=== PATIENT | female | born 1985 | race Two or more races ===

== ENCOUNTER 2019-04-28 17:55 | Inpatient (IN) | payer SELFPAY ==
[~2019-04-28] VITALS: Ht 160 cm; Wt 95.5 kg
[2019-04-28 19:02] LABS: Basophils # (auto) 0 uL; Basophils % (auto) 0.2 % (0.0-2.0); Eosinophils # (auto) 0 uL; Eosinophils % (auto) 0.1 % (0.0-7.0); Hematocrit 40.8 % (36.0-46.0); Hemoglobin 13.4 g/dL (12.2-16.2); Lymphocytes # (auto) 1.2 uL; Lymphocytes % (auto) 7.3 % (10.0-50.0); Mean Corpuscular Hemoglobin 29.5 pg (28.0-32.0); Mean Corpuscular Volume 89.4 fL (80.0-100.0); Monocytes # (auto) 1.6 uL; Monocytes % (auto) 9.6 % (0.0-12.0); Neutrophils # (auto) 13.8 uL; Neutrophils % (auto) 82.8 % (37.0-80.0); Nucleated Red Blood Cells % 0.1 %; Platelet Count (auto) 299 10^3/uL (140-450); Red Blood Cells 4.56 10^6/uL (4.0-5.20); White Blood Cell 16.7 10^3/uL (4.4-10.8)
[2019-04-28 19:25] LABS: Alanine Aminotransferase 322 U/L (13-56); Albumin 3.7 g/dL (3.4-5.0); Anion Gap 14 (5-15); Blood Alcohol < 3.0 mg/dL (0-5); Blood Urea Nitrogen 25 mg/dL (7-18); Calcium 6.7 mg/dL (8.5-10.1); Carbon Dioxide 16 mmol/L (21-32); Chloride 102 mmol/L (98-107); GFR African American 19 mL/min; GFR Non-African American 15 mL/min; Glucose 135 mg/dL (74-106); Sodium 132 mmol/L (136-145)
[2019-04-28 19:34] LABS: Alkaline Phosphatase 80 U/L (45-117); Aspartate Aminotransferase 1299 U/L (15-37); Bilirubin, Total 0.5 mg/dL (0.2-1.0); Total Protein 8.1 g/dL (6.4-8.2)
[2019-04-28 19:50] LABS: Potassium 6.6 mmol/L (3.5-5.1)
[2019-04-28 21:19] LABS: Urine Bacteria NONE SEEN /hpf (None Seen); Urine Blood 3+ /uL (Negative); Urine Hyaline Cast FEW /lpf (0 - 2); Urine Mucus FEW (None Seen); Urine Specific Gravity 1.017 (1.001-1.035); Urine WBC 5 /hpf (0 - 5)
[2019-04-28 21:26] LABS: Alcohol, Urine < 3.0 mg/dL (0-5); Amphetamine Screen, Urine POSITIVE (NEGATIVE); Barbiturate Scree,Urine NEGATIVE (NEGATIVE); Benzodiazephine Screen, Urine NEGATIVE (NEGATIVE); Cannabinoid Screen, Urine NEGATIVE (NEGATIVE); Cocaine Screen, Urine NEGATIVE (NEGATIVE); Opiate Scree,Urine NEGATIVE (NEGATIVE); Phencyclidine Screen, Urine NEGATIVE (NEGATIVE)
[2019-04-28] MEDS ORDERED: SODIUM CHLORIDE 0.9% 1,000 ML IV ONE ×2 (23:15)
[2019-04-28] MEDS ORDERED: DEXTROSE (50%) 50ML SYRG IV ONE (23:30)
[2019-04-28] MEDS ORDERED: InsuLIN REG 1unit/0.01ml Soln (100units/ml) IV ONE (23:30)
[2019-04-28] MEDS ORDERED: FUROSEMIDE 40 MG/4 ML VIAL IV ONE (23:30)
[2019-04-28] MEDS ORDERED: SODIUM BICARBONATE 8.4% INJ 50ML SYRINGE IV ONE (23:30)
[2019-04-29] MEDS ORDERED: ONDANSETRON HCL 4 MG/2 ML VIAL IV ONE (01:15)
[2019-04-29] MEDS ORDERED: CALCIUM GLUC 4.65meq/50ml D5AE 50 ML IV ONE (03:00)
[2019-04-29] MEDS ORDERED: SODIUM ZIRCONIUM CYCL 10 GM PAK PO ONE (03:00)
[2019-04-29] MEDS ORDERED: ATORVASTATIN 20 MG TAB PO ONE (03:00)
[2019-04-29] MEDS ORDERED: NITROGLYCERIN 0.4 MG SL TAB SL PRN (03:00)
[2019-04-29] MEDS ORDERED: ENOXAPARIN SOD 80 MG/0.8ML SYRINGE SC ONE (03:00)
[2019-04-29] MEDS ORDERED: SODIUM CHLORIDE 0.9% 500 ML IV ONE (03:00)
[2019-04-29] MEDS ORDERED: SODIUM CHLORIDE 0.9% 1,000 ML IV SCH (03:00)
[2019-04-29] MEDS ORDERED: MORPHINE SULF INJ 2 MG/ML SYRINGE 1ML IV PRN (03:00)
[2019-04-29] MEDS ORDERED: SODIUM ZIRCONIUM CYCL 10 GM PAK ONE (03:26)
[2019-04-29 04:02] LABS: INR 1.16 (0.9-1.15); Partial Thromboplastin Time 28.2 sec (23.64-32.05)
[2019-04-29 08:59] LABS: Albumin 2.8 g/dL (3.4-5.0); Potassium 4.9 mmol/L (3.5-5.1)
[2019-04-29] MEDS: cefTRIAXone 1GM/50ML D5W 50 ML IV SCH (09:04)
[2019-04-29 09:10] LABS: BUN/Creatinine Ratio 9.1
[2019-04-29 09:11] LABS: Bilirubin, Total 0.6 mg/dL (0.2-1.0); Total Protein 6.5 g/dL (6.4-8.2)
[2019-04-29 09:12] LABS: Calcium 5.6 mg/dL (8.5-10.1)
[2019-04-29] MEDS ORDERED: ENOXAPARIN SOD 100 MG/1 ML SYRINGE SC SCH (10:00)
[2019-04-29] MEDS ORDERED: ENOXAPARIN SOD 80 MG/0.8ML SYRINGE SC SCH (10:00)
[2019-04-29] MEDS ORDERED: ASPirin 81 mg TAB PO SCH (10:00)
[2019-04-29] MEDS ORDERED: SODIUM BICARBONATE 50ML VIAL 50 ML in D5W/SOD CHL 0.45% 1,000 ML IV SCH (11:00)
[2019-04-29] MEDS: PANTOPRAZOLE 40 MG/10 ML VIAL INJ IV SCH (12:00)
[2019-04-29] MEDS: METOPROLOL TARTRATE 25 MG TAB PO SCH ×2 (12:44→21:46)
[2019-04-29] MEDS ORDERED: SODIUM CHLORIDE 0.9% 2,000 ML IV ONE (14:45)
[2019-04-29] MEDS ORDERED: FUROSEMIDE 40 MG/4 ML VIAL IV ONE (14:45)
[2019-04-29] MEDS: SODIUM BICARBONATE 50ML VIAL 75 ML in D5W/SOD CHL 0.45% 1,000 ML IV SCH ×2 (14:45→21:49)
[2019-04-29] MEDS: LORazepam 2MG/ML-1ML VIAL IV PRN ×2 (16:02→16:30)
[2019-04-29 18:15] VITALS: BP 101/85
[2019-04-29] MEDS: SEVELAMER 800 MG TAB PO SCH (18:45)
[2019-04-29 19:56] VITALS: BP 131/86
[2019-04-29 21:15] VITALS: BP 100/67
[2019-04-29] MEDS ORDERED: NICOTINE 7MG/24HR TOPICAL PATCH TD ONE (21:45)
[2019-04-29] MEDS ORDERED: TEMAZEPAM 15 MG CAP ONE (21:54)
[2019-04-29] MEDS ORDERED: ATORVASTATIN 20 MG TAB PO SCH ×2 (22:00)
[2019-04-30] VITALS (7 sets, daily range): BP systolic 121–154; BP diastolic 84–107
[2019-04-30] MEDS: SODIUM BICARBONATE 50ML VIAL 75 ML in D5W/SOD CHL 0.45% 1,000 ML IV SCH (05:27)
[2019-04-30 07:59] LABS: Basophils # (auto) 0 uL; Basophils % (auto) 0.2 % (0.0-2.0); Eosinophils # (auto) 0 uL; Hematocrit 36.7 % (36.0-46.0); Hemoglobin 11.6 g/dL (12.2-16.2); Lymphocytes # (auto) 1.7 uL; Lymphocytes % (auto) 11.7 % (10.0-50.0); Mean Corpuscular Hemoglobin 29.2 pg (28.0-32.0); Mean Corpuscular Hgb Conc. 31.6 g/dL (32.0-36.0); Mean Corpuscular Volume 92.3 fL (80.0-100.0); Monocytes # (auto) 0.6 uL; Monocytes % (auto) 4.2 % (0.0-12.0); Neutrophils # (auto) 12.3 uL; Neutrophils % (auto) 83.9 % (37.0-80.0); Nucleated Red Blood Cells % 0.1 %; Platelet Count (auto) 129 10^3/uL (140-450); Red Blood Cells 3.98 10^6/uL (4.0-5.20); Red Cell Distribution Width 14.5 % (11.8-14.3); White Blood Cell 14.7 10^3/uL (4.4-10.8)
[2019-04-30] MEDS: SEVELAMER 800 MG TAB PO SCH ×3 (08:05→17:48)
[2019-04-30 08:14] LABS: Albumin 2.6 g/dL (3.4-5.0); Potassium 5.2 mmol/L (3.5-5.1)
[2019-04-30 08:22] LABS: BUN/Creatinine Ratio 10.1; Bilirubin, Total 0.4 mg/dL (0.2-1.0); Total Protein 6.2 g/dL (6.4-8.2)
[2019-04-30 08:54] LABS: Calcium 5.4 mg/dL (8.5-10.1)
[2019-04-30] MEDS: LORazepam 2MG/ML-1ML VIAL IV PRN ×3 (09:07→19:40)
[2019-04-30] MEDS: cefTRIAXone 1GM/50ML D5W 50 ML IV SCH (09:07)
[2019-04-30] MEDS ORDERED: SODIUM CHLORIDE 0.9% 1,000 ML IV ONE (09:30)
[2019-04-30] MEDS: PANTOPRAZOLE 40 MG/10 ML VIAL INJ IV SCH (09:49)
[2019-04-30] MEDS: ASPirin 81 mg TAB PO SCH (09:49)
[2019-04-30] MEDS: METOPROLOL TARTRATE 25 MG TAB PO SCH ×2 (09:50→22:15)
[2019-04-30] MEDS ORDERED: FUROSEMIDE 100 MG/10ML VIAL IV ONE (11:45)
[2019-04-30] MEDS ORDERED: FUROSEMIDE 20 MG/2 ML VIAL IV ONE (12:00)
[2019-04-30 13:19] LABS: Albumin 2.4 g/dL (3.4-5.0); Uric Acid 12.9 mg/dL (2.6-6.0)
[2019-04-30 13:24] LABS: Calcium 5.2 mg/dL (8.5-10.1)
[2019-04-30] MEDS ORDERED: CALCIUM GLUC 4.65meq/50ml D5AE 50 ML IV ONE (13:30)
[2019-04-30] MEDS: SODIUM BICARBONATE 50ML VIAL 150 ML in D5W 5% 1,000 ML IV SCH ×2 (14:03→17:48)
[2019-04-30] MEDS: SODIUM CHLORIDE 0.9% 1,000 ML IV SCH (20:30)
[2019-04-30] MEDS: NICOTINE 7MG/24HR TOPICAL PATCH TD SCH (22:20)
[2019-04-30] MEDS ORDERED: IPRATROPIUM BROM 0.5 MG/2.5ML INH SOL ONE (22:43)
[2019-04-30] MEDS ORDERED: ALBUTEROL SULF 2.5 MG/0.5ML(0.5%) NEB SOLN ONE (22:43)
[2019-05-01] VITALS: BP_SYST 128; BP_SYST 144; BP_DIAS 89; BP_DIAS 90
[2019-05-01] MEDS: SODIUM BICARBONATE 50ML VIAL 150 ML in D5W 5% 1,000 ML IV SCH ×4 (01:04→20:14)
[2019-05-01] MEDS: LORazepam 2MG/ML-1ML VIAL IV PRN ×3 (01:20→20:12)
[2019-05-01] MEDS: ONDANSETRON HCL 4 MG/2 ML VIAL IV PRN (01:21)
[2019-05-01 03:39] VITALS: BP 128/89
[2019-05-01] MEDS: ALBUTEROL SULF 2.5 MG/0.5ML(0.5%) NEB SOLN NEB PRN ×2 (04:43→19:32)
[2019-05-01] MEDS: IPRATROPIUM BROM 0.5 MG/2.5ML INH SOL NEB PRN ×2 (04:43→19:32)
[2019-05-01 06:46] LABS: Basophils # (auto) 0 uL; Basophils % (auto) 0.3 % (0.0-2.0); Eosinophils # (auto) 0 uL; Eosinophils % (auto) 0.1 % (0.0-7.0); Hematocrit 30.1 % (36.0-46.0); Hemoglobin 10.3 g/dL (12.2-16.2); Lymphocytes # (auto) 1.4 uL; Mean Corpuscular Hemoglobin 29.7 pg (28.0-32.0); Mean Corpuscular Hgb Conc. 34.3 g/dL (32.0-36.0); Mean Corpuscular Volume 86.8 fL (80.0-100.0); Monocytes # (auto) 0.5 uL; Neutrophils # (auto) 9.9 uL; Neutrophils % (auto) 83.6 % (37.0-80.0); Platelet Count (auto) 134 10^3/uL (140-450); Red Blood Cells 3.47 10^6/uL (4.0-5.20); Red Cell Distribution Width 13.8 % (11.8-14.3); White Blood Cell 11.9 10^3/uL (4.4-10.8)
[2019-05-01 07:07] LABS: Albumin 2.4 g/dL (3.4-5.0); Potassium 4.1 mmol/L (3.5-5.1)
[2019-05-01 07:28] LABS: BUN/Creatinine Ratio 9.7; Bilirubin, Total 0.5 mg/dL (0.2-1.0); Total Protein 5.6 g/dL (6.4-8.2)
[2019-05-01 07:40] VITALS: BP 120/88
[2019-05-01 07:47] LABS: Calcium 5.3 mg/dL (8.5-10.1)
[2019-05-01] MEDS: SEVELAMER 800 MG TAB PO SCH ×3 (08:09→18:00)
[2019-05-01] MEDS: cefTRIAXone 1GM/50ML D5W 50 ML IV SCH (08:10)
[2019-05-01] MEDS ORDERED: CALCIUM CHL 100MG/ML 1,000 MG in D5W 5% 100 ML IV ONE (09:15)
[2019-05-01] MEDS: ASPirin 81 mg TAB PO SCH (09:43)
[2019-05-01] MEDS: PANTOPRAZOLE 40 MG/10 ML VIAL INJ IV SCH (09:43)
[2019-05-01] MEDS: METOPROLOL TARTRATE 25 MG TAB PO SCH ×2 (09:46→20:13)
[2019-05-01] MEDS: SODIUM CHLORIDE 0.9% 1,000 ML IV SCH ×4 (11:32→22:20)
[2019-05-01 11:45] VITALS: BP 131/92
[2019-05-01 15:45] VITALS: BP 143/83
[2019-05-01 20:00] VITALS: BP 142/105
[2019-05-01] MEDS: ATROPINE SULFATE 1% 2ml RIGHTEYE SCH (20:13)
[2019-05-01] MEDS: NICOTINE 7MG/24HR TOPICAL PATCH TD SCH (21:20)
[2019-05-01] MEDS ORDERED: LORazepam 2MG/ML-1ML VIAL IV PRN (22:15)
[2019-05-01] MEDS ORDERED: LORazepam 2MG/ML-1ML VIAL IV ONE (22:15)
[2019-05-02] VITALS: BP 123/88
[2019-05-02 04:06] VITALS: BP 144/100
[2019-05-02 07:45] VITALS: BP 111/76
[2019-05-02 08:06] LABS: Basophils # (auto) 0 10 ^3/uL (0-0.2); Basophils % (auto) 0.2 % (0.0-2.0); Eosinophils # (auto) 0.1 10 ^3/uL (0-0.8); Eosinophils % (auto) 0.6 % (0.0-7.0); Hematocrit 33.5 % (36.0-46.0); Hemoglobin 11.6 g/dL (12.2-16.2); Lymphocytes # (auto) 1.1 10 ^3/uL (0.4-5.4); Lymphocytes % (auto) 9.9 % (10.0-50.0); Mean Corpuscular Hemoglobin 30.3 pg (28.0-32.0); Mean Corpuscular Hgb Conc. 34.6 g/dL (32.0-36.0); Mean Corpuscular Volume 87.7 fL (80.0-100.0); Monocytes # (auto) 0.4 10 ^3/uL (0-1.3); Monocytes % (auto) 3.8 % (0.0-12.0); Neutrophils # (auto) 9.4 10 ^3/uL (1.6-8.6); Neutrophils % (auto) 85.5 % (37.0-80.0); Platelet Count (auto) 180 10^3/uL (140-450); Red Blood Cells 3.82 10^6/uL (4.0-5.20); Red Cell Distribution Width 13.8 % (11.8-14.3)
[2019-05-02 08:25] LABS: Albumin 1.9 g/dL (3.4-5.0); Potassium 3.9 mmol/L (3.5-5.1)
[2019-05-02 08:34] LABS: BUN/Creatinine Ratio 9.1; Bilirubin, Total 0.3 mg/dL (0.2-1.0); Total Protein 4.9 g/dL (6.4-8.2)
[2019-05-02 08:39] LABS: Calcium 5.3 mg/dL (8.5-10.1)
[2019-05-02] MEDS: ADENOSINE 90 MG in GIVE UN-DILUTED 0 ML IV STA (08:42)
[2019-05-02] MEDS: SODIUM BICARBONATE 50ML VIAL 150 ML in D5W 5% 1,000 ML IV SCH (09:55)
[2019-05-02] MEDS: SODIUM CHLORIDE 0.9% 1,000 ML IV SCH ×3 (09:55→19:10)
[2019-05-02 10:13] LABS: Hepatitis B Surface Antibody Positive
[2019-05-02] MEDS: ASPirin 81 mg TAB PO SCH (10:27)
[2019-05-02] MEDS: cefTRIAXone 1GM/50ML D5W 50 ML IV SCH (10:27)
[2019-05-02] MEDS: SEVELAMER 800 MG TAB PO SCH ×3 (10:27→17:05)
[2019-05-02] MEDS: PANTOPRAZOLE 40 MG/10 ML VIAL INJ IV SCH (10:28)
[2019-05-02] MEDS: ATROPINE SULFATE 1% 2ml RIGHTEYE SCH ×2 (10:28→22:09)
[2019-05-02] MEDS: METOPROLOL TARTRATE 25 MG TAB PO SCH ×2 (10:28→22:08)
[2019-05-02 10:51] LABS: Hepatitis A Total Antibody Positive
[2019-05-02 11:11] LABS: Hepatitis A Ab IgM Negative; Hepatitis B Core IgM Negative; Hepatitis B Core Total AB Negative; Hepatitis B Surface Antigen Negative (Negative)
[2019-05-02 11:12] LABS: Hepatitis C Antibody Negative (Negative)
[2019-05-02 11:40] VITALS: BP 120/89
[2019-05-02 14:15] LABS: Protein, Urine 174.7 mg/dL (0.0-11.9)
[2019-05-02 15:35] VITALS: BP 132/87
[2019-05-02 20:00] VITALS: BP 114/68
[2019-05-02] MEDS: NICOTINE 7MG/24HR TOPICAL PATCH TD SCH (22:09)
[2019-05-03] VITALS (9 sets, daily range): BP systolic 102–133; BP diastolic 69–81
[2019-05-03] MEDS: TEMAZEPAM 15 MG CAP PO PRN (00:07)
[2019-05-03] MEDS: SODIUM CHLORIDE 0.9% 1,000 ML IV SCH ×3 (01:50→16:44)
[2019-05-03] MEDS: SEVELAMER 800 MG TAB PO SCH ×3 (08:00→19:09)
[2019-05-03 08:07] LABS: Basophils # (auto) 0 10 ^3/uL (0-0.2); Basophils % (auto) 0.2 % (0.0-2.0); Eosinophils # (auto) 0.2 10 ^3/uL (0-0.8); Eosinophils % (auto) 1.3 % (0.0-7.0); Hemoglobin 12.8 g/dL (12.2-16.2); Lymphocytes # (auto) 1.3 10 ^3/uL (0.4-5.4); Lymphocytes % (auto) 9.1 % (10.0-50.0); Mean Corpuscular Hemoglobin 28.8 pg (28.0-32.0); Mean Corpuscular Hgb Conc. 32.7 g/dL (32.0-36.0); Mean Corpuscular Volume 88.1 fL (80.0-100.0); Monocytes # (auto) 0.4 10 ^3/uL (0-1.3); Monocytes % (auto) 2.8 % (0.0-12.0); Neutrophils # (auto) 11.9 10 ^3/uL (1.6-8.6); Neutrophils % (auto) 86.6 % (37.0-80.0); Platelet Count (auto) 243 10^3/uL (140-450); Red Blood Cells 4.43 10^6/uL (4.0-5.20); White Blood Cell 13.7 10^3/uL (4.4-10.8)
[2019-05-03 08:18] LABS: Albumin 1.6 g/dL (3.4-5.0)
[2019-05-03 08:19] LABS: Phosphorus 7.7 mg/dL (2.5-4.90); Uric Acid 11.4 mg/dL (2.6-6.0)
[2019-05-03 08:23] LABS: BUN/Creatinine Ratio 8.7; Bilirubin, Total 0.3 mg/dL (0.2-1.0); Total Protein 4.5 g/dL (6.4-8.2)
[2019-05-03 08:30] LABS: Calcium 5.5 mg/dL (8.5-10.1)
[2019-05-03] MEDS: ASPirin 81 mg TAB PO SCH (09:12)
[2019-05-03] MEDS: METOPROLOL TARTRATE 25 MG TAB PO SCH ×2 (09:12→22:31)
[2019-05-03] MEDS: PANTOPRAZOLE 40 MG/10 ML VIAL INJ IV SCH (09:35)
[2019-05-03] MEDS ORDERED: SODIUM CHLORIDE 0.9% 1,000 ML IV SCH (11:15)
[2019-05-03] MEDS: ADENOSINE 90 MG in GIVE UN-DILUTED 0 ML IV STA (12:29)
[2019-05-03] MEDS: ATROPINE SULFATE 1% 2ml RIGHTEYE SCH ×2 (13:02→22:32)
[2019-05-03] MEDS: LORazepam 2MG/ML-1ML VIAL IV PRN (13:46)
[2019-05-03] MEDS: ALLOPURINOL 300 MG TAB PO SCH (13:46)
[2019-05-03 14:10] LABS: INR 1.04 (0.9-1.15); Partial Thromboplastin Time 26.3 sec (23.64-32.05)
[2019-05-03] MEDS: ACETAMINOPHEN 500 MG TAB PO PRN (20:19)
[2019-05-03] MEDS: NICOTINE 7MG/24HR TOPICAL PATCH TD SCH (22:33)
[2019-05-04 05:00] VITALS: BP 116/74
[2019-05-04 05:07] LABS: RPR Non Reactive (Non Reactive)
[2019-05-04] MEDS: SODIUM CHLORIDE 0.9% 1,000 ML IV SCH (05:20)
[2019-05-04 06:05] LABS: Basophils # (auto) 0 10 ^3/uL (0-0.2); Basophils % (auto) 0.2 % (0.0-2.0); Eosinophils # (auto) 0.2 10 ^3/uL (0-0.8); Eosinophils % (auto) 1.6 % (0.0-7.0); Hematocrit 38.1 % (36.0-46.0); Hemoglobin 12.9 g/dL (12.2-16.2); Lymphocytes # (auto) 1.4 10 ^3/uL (0.4-5.4); Lymphocytes % (auto) 10.9 % (10.0-50.0); Mean Corpuscular Hemoglobin 29.5 pg (28.0-32.0); Mean Corpuscular Hgb Conc. 33.8 g/dL (32.0-36.0); Mean Corpuscular Volume 87.2 fL (80.0-100.0); Monocytes # (auto) 0.4 10 ^3/uL (0-1.3); Monocytes % (auto) 2.8 % (0.0-12.0); Neutrophils # (auto) 10.9 10 ^3/uL (1.6-8.6); Neutrophils % (auto) 84.5 % (37.0-80.0); Platelet Count (auto) 319 10^3/uL (140-450); Red Blood Cells 4.37 10^6/uL (4.0-5.20); Red Cell Distribution Width 14.1 % (11.8-14.3); White Blood Cell 12.9 10^3/uL (4.4-10.8)
[2019-05-04 06:24] LABS: Potassium 3.6 mmol/L (3.5-5.1)
[2019-05-04 06:34] LABS: Albumin 1.9 g/dL (3.4-5.0); BUN/Creatinine Ratio 8.2; Bilirubin, Total 0.5 mg/dL (0.2-1.0); Calcium 6.3 mg/dL (8.5-10.1); Total Protein 5.3 g/dL (6.4-8.2)
[2019-05-04] MEDS ORDERED: SODIUM CHL 0.9% 1000 ML BAG XX ONE (07:00)
[2019-05-04] MEDS: SEVELAMER 800 MG TAB PO SCH ×3 (08:00→18:00)
[2019-05-04 09:00] VITALS: BP 114/43
[2019-05-04] MEDS: ALLOPURINOL 300 MG TAB PO SCH (10:00)
[2019-05-04] MEDS: ASPirin 81 mg TAB PO SCH (10:00)
[2019-05-04] MEDS: METOPROLOL TARTRATE 25 MG TAB PO SCH ×2 (10:00→22:15)
[2019-05-04] MEDS: ATROPINE SULFATE 1% 2ml RIGHTEYE SCH ×2 (10:41→22:35)
[2019-05-04] MEDS ORDERED: LIDOCAINE 2%HCL (LOCAL ANESTH.) INJ 20ML MDV ONE ×2 (13:23→14:18)
[2019-05-04] MEDS ORDERED: MIDAZOLAM HCL 1MG/1ML-2 ML VIAL ONE (13:40)
[2019-05-04] MEDS ORDERED: fentaNYL CITRATE 100 MCG/2 ML VL ONE (13:40)
[2019-05-04] MEDS ORDERED: HEPARIN SODIUM (PORCINE) 5000 UNITS/ML 1ML VIAL ONE (13:43)
[2019-05-04] MEDS: ACETAMINOPHEN 500 MG TAB PO PRN (18:32)
[2019-05-04 20:00] VITALS: BP 110/79
[2019-05-04] MEDS ORDERED: EPOETIN ALFA 10,000 UNIT/1 ML VIAL SC ONE (21:00)
[2019-05-04 21:39] VITALS: BP 124/80
[2019-05-04] MEDS: NICOTINE 7MG/24HR TOPICAL PATCH TD SCH (22:15)
[2019-05-05 05:37] VITALS: BP 119/60
[2019-05-05] MEDS: ACETAMINOPHEN 500 MG TAB PO PRN ×2 (06:12→16:38)
[2019-05-05 06:53] LABS: Basophils # (auto) 0.1 10 ^3/uL (0-0.2); Basophils % (auto) 0.6 % (0.0-2.0); Eosinophils # (auto) 0.2 10 ^3/uL (0-0.8); Eosinophils % (auto) 2.1 % (0.0-7.0); Hematocrit 33.6 % (36.0-46.0); Hemoglobin 11.4 g/dL (12.2-16.2); Lymphocytes # (auto) 1.1 10 ^3/uL (0.4-5.4); Lymphocytes % (auto) 11.8 % (10.0-50.0); Mean Corpuscular Hemoglobin 29.9 pg (28.0-32.0); Mean Corpuscular Volume 87.9 fL (80.0-100.0); Monocytes # (auto) 0.5 10 ^3/uL (0-1.3); Neutrophils # (auto) 7.2 10 ^3/uL (1.6-8.6); Neutrophils % (auto) 79.5 % (37.0-80.0); Nucleated Red Blood Cells % 0.1 %; Platelet Count (auto) 272 10^3/uL (140-450); Red Blood Cells 3.82 10^6/uL (4.0-5.20); Red Cell Distribution Width 13.9 % (11.8-14.3); White Blood Cell 9.1 10^3/uL (4.4-10.8)
[2019-05-05 07:13] LABS: Potassium 3.4 mmol/L (3.5-5.1)
[2019-05-05 07:24] LABS: BUN/Creatinine Ratio 7.2; Bilirubin, Total 0.6 mg/dL (0.2-1.0); Calcium 7.2 mg/dL (8.5-10.1); Total Protein 5.1 g/dL (6.4-8.2)
[2019-05-05] MEDS: SEVELAMER 800 MG TAB PO SCH ×2 (08:37→12:00)
[2019-05-05 09:00] VITALS: BP 139/74
[2019-05-05] MEDS: ASPirin 81 mg TAB PO SCH (09:51)
[2019-05-05] MEDS: ALLOPURINOL 300 MG TAB PO SCH (09:52)
[2019-05-05] MEDS: METOPROLOL TARTRATE 25 MG TAB PO SCH ×2 (09:52→21:47)
[2019-05-05] MEDS: ATROPINE SULFATE 1% 2ml RIGHTEYE SCH ×2 (09:52→22:00)
[2019-05-05] MEDS ORDERED: LORazepam 2MG/ML-1ML VIAL IV PRN (10:45)
[2019-05-05] MEDS ORDERED: POTASSIUM CHL 20 Meq TABLET PO ONE (10:45)
[2019-05-05 13:00] VITALS: BP 106/60
[2019-05-05] MEDS: ERGOCALCIFEROL 50,000 UNIT(1.25MG) CAP PO SCH ×2 (15:18→16:36)
[2019-05-05 16:42] VITALS: BP 139/96
[2019-05-05] MEDS: LORazepam 2MG/ML-1ML VIAL IV PRN (16:51)
[2019-05-05] MEDS: CALCIUM ACETATE 667 MG CAP PO SCH (18:01)
[2019-05-05] MEDS: NICOTINE 7MG/24HR TOPICAL PATCH TD SCH (21:47)
[2019-05-05 22:00] VITALS: BP 133/88
[2019-05-06] MEDS: TEMAZEPAM 15 MG CAP PO PRN ×2 (00:39→22:35)
[2019-05-06] MEDS: HYDROcodone-ACET 5/325MG TAB PO PRN ×3 (01:11→20:10)
[2019-05-06 02:00] VITALS: BP 148/94
[2019-05-06 05:00] VITALS: BP 132/83
[2019-05-06] MEDS ORDERED: SODIUM CHL 0.9% 1000 ML BAG XX ONE (07:00)
[2019-05-06] MEDS: CALCIUM ACETATE 667 MG CAP PO SCH ×3 (07:52→18:43)
[2019-05-06 08:14] LABS: Basophils # (auto) 0.1 10 ^3/uL (0-0.2); Basophils % (auto) 1.3 % (0.0-2.0); Eosinophils # (auto) 0.4 10 ^3/uL (0-0.8); Eosinophils % (auto) 4.7 % (0.0-7.0); Hematocrit 31.9 % (36.0-46.0); Hemoglobin 11.2 g/dL (12.2-16.2); Lymphocytes # (auto) 1.2 10 ^3/uL (0.4-5.4); Mean Corpuscular Hemoglobin 30.7 pg (28.0-32.0); Mean Corpuscular Volume 87.8 fL (80.0-100.0); Monocytes # (auto) 0.4 10 ^3/uL (0-1.3); Monocytes % (auto) 4.3 % (0.0-12.0); Neutrophils # (auto) 6.6 10 ^3/uL (1.6-8.6); Neutrophils % (auto) 75.7 % (37.0-80.0); Platelet Count (auto) 275 10^3/uL (140-450); Red Blood Cells 3.63 10^6/uL (4.0-5.20); White Blood Cell 8.7 10^3/uL (4.4-10.8)
[2019-05-06 08:27] LABS: Calcium 7.5 mg/dL (8.5-10.1)
[2019-05-06 08:31] LABS: BUN/Creatinine Ratio 6.8; Bilirubin, Total 0.4 mg/dL (0.2-1.0); Total Protein 5.1 g/dL (6.4-8.2)
[2019-05-06 08:32] LABS: INR 1.04 (0.9-1.15); Partial Thromboplastin Time 37.5 sec (23.64-32.05)
[2019-05-06] MEDS: ONDANSETRON HCL 4 MG/2 ML VIAL IV PRN (08:54)
[2019-05-06 09:00] VITALS: BP 149/97
[2019-05-06] MEDS ORDERED: POTASSIUM CHLORIDE 20 MEQ, LIDOCAINE 1% (LOCAL ANESTH.) 2 ML in SODIUM CHL 0.9% 100 ML IV ONE (09:00)
[2019-05-06] MEDS ORDERED: POTASSIUM CHL 20MEQ/100ML 100 ML IV ONE (09:30)
[2019-05-06] MEDS: ALLOPURINOL 300 MG TAB PO SCH (09:38)
[2019-05-06] MEDS: METOPROLOL TARTRATE 25 MG TAB PO SCH ×2 (09:38→23:17)
[2019-05-06] MEDS: ASPirin 81 mg TAB PO SCH (09:38)
[2019-05-06] MEDS: ATROPINE SULFATE 1% 2ml RIGHTEYE SCH ×2 (09:38→22:00)
[2019-05-06] MEDS ORDERED: HEPARIN SODIUM (PORCINE) 5000 UNITS/ML 1ML VIAL ONE (11:54)
[2019-05-06] MEDS ORDERED: ANGIOMAX 250 MG VIAL IV ONE (11:54)
[2019-05-06] MEDS ORDERED: SODIUM CHL 0.9% 50 ML ONE (11:55)
[2019-05-06] MEDS ORDERED: LIDOCAINE 2%HCL (LOCAL ANESTH.) INJ 20ML MDV ONE (11:55)
[2019-05-06] MEDS ORDERED: MIDAZOLAM HCL 1MG/1ML-2 ML VIAL ONE (11:55)
[2019-05-06] MEDS ORDERED: fentaNYL CITRATE 100 MCG/2 ML VL ONE (11:55)
[2019-05-06] MEDS ORDERED: IODIXANOL 320MG/ML 100ML BTL IV ONE ×2 (11:56→12:40)
[2019-05-06] MEDS ORDERED: VERAPAMIL 2.5MG/ML INJ 2ML VIAL IV ONE (11:57)
[2019-05-06] MEDS ORDERED: IOHEXOL 350 MG/ML 100ML IJ ONE ×2 (12:40→12:41)
[2019-05-06 17:00] VITALS: BP 155/103
[2019-05-06 22:00] VITALS: BP 145/81
[2019-05-06] MEDS: NICOTINE 7MG/24HR TOPICAL PATCH TD SCH (23:15)
[2019-05-06 23:57] VITALS: BP 145/81
[2019-05-07] MEDS: HYDROcodone-ACET 5/325MG TAB PO PRN ×2 (03:10→21:48)
[2019-05-07 05:00] VITALS: BP 131/84
[2019-05-07] MEDS: ACETAMINOPHEN 500 MG TAB PO PRN (05:41)
[2019-05-07] MEDS: CALCIUM ACETATE 667 MG CAP PO SCH ×3 (08:51→18:08)
[2019-05-07 09:00] VITALS: BP 147/82
[2019-05-07 10:58] LABS: BUN/Creatinine Ratio 5.8; Potassium 3.9 mmol/L (3.5-5.1)
[2019-05-07] MEDS: ASPirin 81 mg TAB PO SCH (11:18)
[2019-05-07] MEDS: METOPROLOL TARTRATE 25 MG TAB PO SCH ×2 (11:18→21:49)
[2019-05-07] MEDS: ALLOPURINOL 300 MG TAB PO SCH (11:18)
[2019-05-07] MEDS: ATROPINE SULFATE 1% 2ml RIGHTEYE SCH ×2 (11:19→21:49)
[2019-05-07 13:00] VITALS: BP 154/95
[2019-05-07] MEDS: FUROSEMIDE 100 MG/10ML VIAL IV SCH (13:38)
[2019-05-07 17:00] VITALS: BP 147/80
[2019-05-07] MEDS: LORazepam 2MG/ML-1ML VIAL IV PRN (20:02)
[2019-05-07] MEDS: NICOTINE 7MG/24HR TOPICAL PATCH TD SCH (21:57)
[2019-05-07 22:00] VITALS: BP 145/92
[2019-05-08 05:00] VITALS: BP 140/95
[2019-05-08] MEDS ORDERED: SODIUM CHL 0.9% 1000 ML BAG XX ONE (07:00)
[2019-05-08 09:00] VITALS: BP 135/94
[2019-05-08] MEDS: CALCIUM ACETATE 667 MG CAP PO SCH ×3 (09:09→17:18)
[2019-05-08] MEDS: ASPirin 81 mg TAB PO SCH (09:10)
[2019-05-08] MEDS: ALLOPURINOL 300 MG TAB PO SCH (09:10)
[2019-05-08] MEDS: ATROPINE SULFATE 1% 2ml RIGHTEYE SCH ×2 (09:11→21:52)
[2019-05-08] MEDS: FUROSEMIDE 100 MG/10ML VIAL IV SCH (09:11)
[2019-05-08] MEDS: METOPROLOL TARTRATE 25 MG TAB PO SCH ×2 (09:11→21:51)
[2019-05-08] MEDS: HYDROcodone-ACET 5/325MG TAB PO PRN ×3 (09:23→21:53)
[2019-05-08 13:00] VITALS: BP 150/91
[2019-05-08] MEDS ORDERED: LACTULOSE 20Gm/30ML SOLN PO PRN (13:15)
[2019-05-08 16:43] VITALS: BP 157/77
[2019-05-08 20:20] VITALS: BP 151/93
[2019-05-08] MEDS: DOCUSATE SOD 100 MG CAP PO SCH (21:51)
[2019-05-08] MEDS: LORazepam 0.5 MG TAB PO PRN (21:53)
[2019-05-08] MEDS: NICOTINE 7MG/24HR TOPICAL PATCH TD SCH (22:12)
[2019-05-08 23:14] VITALS: BP 151/93
[2019-05-09] VITALS (8 sets, daily range): BP systolic 118–154; BP diastolic 71–89
[2019-05-09] MEDS: HYDROcodone-ACET 5/325MG TAB PO PRN ×3 (05:19→23:42)
[2019-05-09 06:40] LABS: Potassium 4.5 mmol/L (3.5-5.1)
[2019-05-09 06:44] LABS: BUN/Creatinine Ratio 5.6; Calcium 8.5 mg/dL (8.5-10.1)
[2019-05-09] MEDS: CALCIUM ACETATE 667 MG CAP PO SCH ×3 (08:07→18:05)
[2019-05-09] MEDS: FUROSEMIDE 100 MG/10ML VIAL IV SCH (10:00)
[2019-05-09] MEDS: ATROPINE SULFATE 1% 2ml RIGHTEYE SCH ×2 (10:00→22:17)
[2019-05-09] MEDS: METOPROLOL TARTRATE 25 MG TAB PO SCH ×2 (10:00→22:17)
[2019-05-09] MEDS: ALLOPURINOL 300 MG TAB PO SCH (10:04)
[2019-05-09] MEDS: DOCUSATE SOD 100 MG CAP PO SCH (10:04)
[2019-05-09] MEDS: ASPirin 81 mg TAB PO SCH (10:04)
[2019-05-09] MEDS: ACETAMINOPHEN 500 MG TAB PO PRN (10:05)
[2019-05-09] MEDS ORDERED: DOCUSATE SOD 100 MG CAP PO PRN (10:45)
[2019-05-09] MEDS ORDERED: HEPARIN 1,000 UNITS/ml 1ML VIAL IV ONE (11:45)
[2019-05-09] MEDS: NICOTINE 7MG/24HR TOPICAL PATCH TD SCH (22:17)
[2019-05-09] MEDS: LORazepam 0.5 MG TAB PO PRN (22:19)
[2019-05-10] VITALS (8 sets, daily range): BP systolic 112–156; BP diastolic 64–108
[2019-05-10 06:00] LABS: Basophils # (auto) 0.1 10 ^3/uL (0-0.2); Basophils % (auto) 0.5 % (0.0-2.0); Eosinophils # (auto) 0.3 10 ^3/uL (0-0.8); Eosinophils % (auto) 2.7 % (0.0-7.0); Hematocrit 25.6 % (36.0-46.0); Hemoglobin 8.5 g/dL (12.2-16.2); Lymphocytes # (auto) 1.3 10 ^3/uL (0.4-5.4); Lymphocytes % (auto) 10.9 % (10.0-50.0); Mean Corpuscular Hemoglobin 29.8 pg (28.0-32.0); Mean Corpuscular Hgb Conc. 33.2 g/dL (32.0-36.0); Mean Corpuscular Volume 89.8 fL (80.0-100.0); Monocytes # (auto) 0.9 10 ^3/uL (0-1.3); Monocytes % (auto) 7.7 % (0.0-12.0); Neutrophils # (auto) 9.2 10 ^3/uL (1.6-8.6); Neutrophils % (auto) 78.2 % (37.0-80.0); Platelet Count (auto) 348 10^3/uL (140-450); Red Blood Cells 2.84 10^6/uL (4.0-5.20); Red Cell Distribution Width 14.8 % (11.8-14.3); White Blood Cell 11.7 10^3/uL (4.4-10.8)
[2019-05-10] MEDS: HYDROcodone-ACET 5/325MG TAB PO PRN ×2 (06:21→20:52)
[2019-05-10 06:22] LABS: Albumin 2.3 g/dL (3.4-5.0)
[2019-05-10 06:29] LABS: BUN/Creatinine Ratio 5.3; Bilirubin, Total 0.4 mg/dL (0.2-1.0); Calcium 8.8 mg/dL (8.5-10.1); Total Protein 6.1 g/dL (6.4-8.2)
[2019-05-10] MEDS: CALCIUM ACETATE 667 MG CAP PO SCH ×3 (08:31→18:15)
[2019-05-10] MEDS: FUROSEMIDE 100 MG/10ML VIAL IV SCH (08:32)
[2019-05-10] MEDS: ASPirin 81 mg TAB PO SCH (08:32)
[2019-05-10] MEDS: ALLOPURINOL 300 MG TAB PO SCH (08:33)
[2019-05-10] MEDS: METOPROLOL TARTRATE 25 MG TAB PO SCH ×2 (08:36→20:53)
[2019-05-10] MEDS: ATROPINE SULFATE 1% 2ml RIGHTEYE SCH ×2 (11:25→20:53)
[2019-05-10] MEDS: NICOTINE 7MG/24HR TOPICAL PATCH TD SCH (20:53)
[2019-05-11] MEDS: HYDROcodone-ACET 5/325MG TAB PO PRN (03:17)
[2019-05-11 05:00] VITALS: BP 131/73
[2019-05-11 06:13] LABS: Basophils # (auto) 0.1 10 ^3/uL (0-0.2); Basophils % (auto) 0.5 % (0.0-2.0); Eosinophils # (auto) 0.3 10 ^3/uL (0-0.8); Eosinophils % (auto) 2.8 % (0.0-7.0); Hematocrit 22.2 % (36.0-46.0); Hemoglobin 7.6 g/dL (12.2-16.2); Lymphocytes # (auto) 1.6 10 ^3/uL (0.4-5.4); Lymphocytes % (auto) 15.7 % (10.0-50.0); Mean Corpuscular Hemoglobin 30.5 pg (28.0-32.0); Mean Corpuscular Hgb Conc. 34.1 g/dL (32.0-36.0); Mean Corpuscular Volume 89.5 fL (80.0-100.0); Monocytes # (auto) 0.9 10 ^3/uL (0-1.3); Monocytes % (auto) 8.8 % (0.0-12.0); Neutrophils # (auto) 7.4 10 ^3/uL (1.6-8.6); Neutrophils % (auto) 72.2 % (37.0-80.0); Platelet Count (auto) 359 10^3/uL (140-450); Red Blood Cells 2.48 10^6/uL (4.0-5.20); Red Cell Distribution Width 14.7 % (11.8-14.3); White Blood Cell 10.3 10^3/uL (4.4-10.8)
[2019-05-11 06:34] LABS: BUN/Creatinine Ratio 5.9; Calcium 8.7 mg/dL (8.5-10.1)
[2019-05-11] MEDS ORDERED: SODIUM CHL 0.9% 1000 ML BAG XX ONE (07:00)
[2019-05-11 08:00] VITALS: BP 129/81
[2019-05-11 09:00] VITALS: BP 137/84
[2019-05-11] MEDS: CALCIUM ACETATE 667 MG CAP PO SCH ×3 (11:13→18:14)
[2019-05-11] MEDS: ALLOPURINOL 300 MG TAB PO SCH (11:13)
[2019-05-11] MEDS: ASPirin 81 mg TAB PO SCH (11:13)
[2019-05-11] MEDS: ACETAMINOPHEN 500 MG TAB PO PRN (11:14)
[2019-05-11] MEDS: METOPROLOL TARTRATE 25 MG TAB PO SCH ×2 (11:14→21:56)
[2019-05-11] MEDS: FUROSEMIDE 100 MG/10ML VIAL IV SCH (11:15)
[2019-05-11] MEDS: ATROPINE SULFATE 1% 2ml RIGHTEYE SCH ×2 (11:16→22:36)
[2019-05-11] MEDS ORDERED: SODIUM FERR GLUC 125 MG in NS 100 ML IV SCH (12:00)
[2019-05-11 13:00] VITALS: BP 129/81
[2019-05-11] MEDS ORDERED: EPOETIN ALFA 10,000 UNIT/1 ML VIAL SC ONE (21:00)
[2019-05-11] MEDS: NICOTINE 7MG/24HR TOPICAL PATCH TD SCH (21:55)
[2019-05-11] MEDS: TEMAZEPAM 15 MG CAP PO PRN (21:56)
[2019-05-11] MEDS: ACETAMINOPHEN 325 MG TAB PO PRN (21:56)
[2019-05-11 22:00] VITALS: BP 158/87
[2019-05-12] MEDS: HYDROcodone-ACET 5/325MG TAB PO PRN ×3 (02:59→21:09)
[2019-05-12 05:00] VITALS: BP 137/84
[2019-05-12] MEDS: CALCIUM ACETATE 667 MG CAP PO SCH ×3 (08:26→18:39)
[2019-05-12 09:00] VITALS: BP 141/79
[2019-05-12] MEDS: ATROPINE SULFATE 1% 2ml RIGHTEYE SCH ×2 (10:00→21:10)
[2019-05-12] MEDS: ASPirin 81 mg TAB PO SCH (10:01)
[2019-05-12] MEDS: FUROSEMIDE 100 MG/10ML VIAL IV SCH (10:01)
[2019-05-12] MEDS: ALLOPURINOL 300 MG TAB PO SCH (10:01)
[2019-05-12] MEDS: METOPROLOL TARTRATE 25 MG TAB PO SCH ×2 (10:01→21:09)
[2019-05-12 12:56] VITALS: BP 148/96
[2019-05-12] MEDS: IRON SUCROSE COMPLEX 200 MG in SODIUM CHL 0.9% 100 ML IV SCH (13:32)
[2019-05-12] MEDS: ERGOCALCIFEROL 50,000 UNIT(1.25MG) CAP PO SCH (15:03)
[2019-05-12 17:00] VITALS: BP 158/96
[2019-05-12] MEDS: NICOTINE 7MG/24HR TOPICAL PATCH TD SCH (21:08)
[2019-05-12] MEDS: TEMAZEPAM 15 MG CAP PO PRN (21:10)
[2019-05-12 22:00] VITALS: BP 150/94
[2019-05-13] MEDS: LORazepam 0.5 MG TAB PO PRN ×2 (04:34→19:36)
[2019-05-13 05:00] VITALS: BP 155/98
[2019-05-13 06:15] LABS: % Iron Saturation 52.2 % (15-50)
[2019-05-13] MEDS ORDERED: SODIUM CHL 0.9% 1000 ML BAG XX ONE (07:00)
[2019-05-13 08:00] VITALS: BP 139/78
[2019-05-13] MEDS: CALCIUM ACETATE 667 MG CAP PO SCH ×3 (08:00→18:35)
[2019-05-13] MEDS: ACETAMINOPHEN 325 MG TAB PO PRN (08:34)
[2019-05-13 09:00] VITALS: BP 139/78
[2019-05-13] MEDS: HYDROcodone-ACET 5/325MG TAB PO PRN ×2 (10:21→16:27)
[2019-05-13 10:48] LABS: Basophils # (auto) 0.1 10 ^3/uL (0-0.2); Basophils % (auto) 1.1 % (0.0-2.0); Eosinophils # (auto) 0.2 10 ^3/uL (0-0.8); Eosinophils % (auto) 2.8 % (0.0-7.0); Hematocrit 25.9 % (36.0-46.0); Hemoglobin 8.6 g/dL (12.2-16.2); Lymphocytes # (auto) 1.6 10 ^3/uL (0.4-5.4); Lymphocytes % (auto) 19.1 % (10.0-50.0); Mean Corpuscular Hgb Conc. 33.4 g/dL (32.0-36.0); Mean Corpuscular Volume 89.9 fL (80.0-100.0); Monocytes # (auto) 0.8 10 ^3/uL (0-1.3); Monocytes % (auto) 9.2 % (0.0-12.0); Neutrophils # (auto) 5.7 10 ^3/uL (1.6-8.6); Neutrophils % (auto) 67.8 % (37.0-80.0); Platelet Count (auto) 435 10^3/uL (140-450); Red Blood Cells 2.88 10^6/uL (4.0-5.20); Red Cell Distribution Width 14.8 % (11.8-14.3); White Blood Cell 8.3 10^3/uL (4.4-10.8)
[2019-05-13 11:03] LABS: Calcium 9.7 mg/dL (8.5-10.1); Potassium 3.5 mmol/L (3.5-5.1)
[2019-05-13 11:07] LABS: BUN/Creatinine Ratio 6.9; Bilirubin, Total 0.2 mg/dL (0.2-1.0); Phosphorus 5.5 mg/dL (2.5-4.90); Total Protein 7.2 g/dL (6.4-8.2); Uric Acid 4.7 mg/dL (2.6-6.0)
[2019-05-13 13:00] VITALS: BP 126/68
[2019-05-13] MEDS: FUROSEMIDE 100 MG/10ML VIAL IV SCH (13:15)
[2019-05-13] MEDS: METOPROLOL TARTRATE 25 MG TAB PO SCH ×2 (13:17→22:55)
[2019-05-13] MEDS: ATROPINE SULFATE 1% 2ml RIGHTEYE SCH ×2 (13:18→22:55)
[2019-05-13] MEDS: ALLOPURINOL 300 MG TAB PO SCH (13:18)
[2019-05-13] MEDS: IRON SUCROSE COMPLEX 200 MG in SODIUM CHL 0.9% 100 ML IV SCH (13:21)
[2019-05-13] MEDS ORDERED: MET25T PO (14:24)
[2019-05-13] MEDS ORDERED: FURO40TA4 PO (14:24)
[2019-05-13] MEDS ORDERED: ERGO1CAP23 PO (14:24)
[2019-05-13] MEDS ORDERED: ALL300T PO (14:24)
[2019-05-13] MEDS ORDERED: FER325T PO (14:24)
[2019-05-13 16:48] VITALS: BP 162/90
[2019-05-13] MEDS ORDERED: EPOETIN ALFA 10,000 UNIT/1 ML VIAL SC ONE (21:00)
[2019-05-13 22:00] VITALS: BP 121/61
[2019-05-13] MEDS: NICOTINE 7MG/24HR TOPICAL PATCH TD SCH (22:55)
[2019-05-13] MEDS: TEMAZEPAM 15 MG CAP PO PRN (22:56)
[2019-05-14 05:00] VITALS: BP 150/87
[2019-05-14 07:01] LABS: Calcium 9.7 mg/dL (8.5-10.1); Potassium 3.4 mmol/L (3.5-5.1)
[2019-05-14 07:04] LABS: BUN/Creatinine Ratio 8.1
[2019-05-14 08:41] VITALS: BP 143/90
[2019-05-14] MEDS: CALCIUM ACETATE 667 MG CAP PO SCH ×3 (09:57→17:46)
[2019-05-14] MEDS: SOD CHL 0.45% 1,000 ML IV SCH ×2 (09:57→18:00)
[2019-05-14] MEDS: ALLOPURINOL 300 MG TAB PO SCH (09:58)
[2019-05-14] MEDS: ATROPINE SULFATE 1% 2ml RIGHTEYE SCH ×2 (09:58→23:18)
[2019-05-14] MEDS: METOPROLOL TARTRATE 25 MG TAB PO SCH ×2 (09:58→23:17)
[2019-05-14] MEDS: HYDROcodone-ACET 5/325MG TAB PO PRN ×3 (09:59→21:01)
[2019-05-14] MEDS ORDERED: ACETAMINOPHEN 325 MG TAB PO ONE (11:00)
[2019-05-14 12:27] VITALS: BP 122/71
[2019-05-14 16:31] VITALS: BP 126/82
[2019-05-14] MEDS: ACETAMINOPHEN 325 MG TAB PO PRN (17:46)
[2019-05-14] MEDS: LORazepam 0.5 MG TAB PO PRN (21:00)
[2019-05-14 22:00] VITALS: BP 120/65
[2019-05-14] MEDS: NICOTINE 7MG/24HR TOPICAL PATCH TD SCH (22:00)
[2019-05-15 05:00] VITALS: BP 136/74
[2019-05-15] MEDS: SOD CHL 0.45% 1,000 ML IV SCH ×3 (05:30→18:43)
[2019-05-15 05:50] LABS: Urine Bacteria NONE SEEN /hpf (None Seen); Urine Blood TRACE /uL (Negative); Urine Specific Gravity 1.006 (1.001-1.035); Urine WBC 21 /hpf (0 - 5)
[2019-05-15 06:05] LABS: Sodium Urine 80 mmol/L (40-220)
[2019-05-15 06:10] LABS: BUN/Creatinine Ratio 9.3; Calcium 10.1 mg/dL (8.5-10.1); Potassium 3.5 mmol/L (3.5-5.1)
[2019-05-15 06:15] LABS: Creatinine, Urine 31 mg/dL (30.0-125.0)
[2019-05-15 09:07] VITALS: BP 125/91
[2019-05-15] MEDS: CALCIUM ACETATE 667 MG CAP PO SCH ×3 (10:28→17:32)
[2019-05-15] MEDS: ALLOPURINOL 300 MG TAB PO SCH (10:29)
[2019-05-15] MEDS: ATROPINE SULFATE 1% 2ml RIGHTEYE SCH ×2 (10:29→21:50)
[2019-05-15] MEDS: HYDROcodone-ACET 5/325MG TAB PO PRN ×2 (10:29→16:13)
[2019-05-15] MEDS: METOPROLOL TARTRATE 25 MG TAB PO SCH ×2 (10:29→21:49)
[2019-05-15 13:00] VITALS: BP 124/80
[2019-05-15 16:37] VITALS: BP 130/81
[2019-05-15] MEDS: LORazepam 0.5 MG TAB PO PRN (21:48)
[2019-05-15 22:00] VITALS: BP 144/73
[2019-05-15] MEDS: NICOTINE 7MG/24HR TOPICAL PATCH TD SCH (22:13)
[2019-05-16] MEDS: HYDROcodone-ACET 5/325MG TAB PO PRN (03:15)
[2019-05-16 05:00] VITALS: BP 104/61
[2019-05-16] MEDS: SOD CHL 0.45% 1,000 ML IV SCH (06:45)
[2019-05-16 08:00] VITALS: BP 123/81
[2019-05-16] MEDS ORDERED: LIDOCAINE 2%HCL (LOCAL ANESTH.) INJ 20ML MDV ONE (09:40)
[2019-05-16] MEDS: METOPROLOL TARTRATE 25 MG TAB PO SCH (09:48)
[2019-05-16] MEDS: ALLOPURINOL 300 MG TAB PO SCH (09:49)
[2019-05-16] MEDS: ATROPINE SULFATE 1% 2ml RIGHTEYE SCH (09:51)
[2019-05-16 11:12] VITALS: BP 123/81
== END 2019-05-16 12:50 | disposition home or self-care (01) | DRG 917 ==
LOC: EDBD 17:55 → ER 17:55 → TELE 17:56 → DOU IN ICU 04-29 17:15 → TELE-WESTW 05-03 03:50 → WEST WING 05-08 16:34
PROVIDERS: ADMIT Nurse Practitioner; ATTEND Internal Medicine
PROC: 0JH63XZ Insertion of Tunneled Vascular Access Device into Chest Subcutaneous Tissue and Fascia, Percutaneous Approach (ICD-10-PCS; principal; 2019-05-04)
PROC: 02H633Z Insertion of Infusion Device into Right Atrium, Percutaneous Approach (ICD-10-PCS; 2019-05-04)
PROC: B548ZZA Ultrasonography of Superior Vena Cava, Guidance (ICD-10-PCS; 2019-05-04)
PROC: B5181ZA Fluoroscopy of Superior Vena Cava using Low Osmolar Contrast, Guidance (ICD-10-PCS; 2019-05-04)
PROC: 5A1D70Z Performance of Urinary Filtration, Intermittent, Less than 6 Hours Per Day (ICD-10-PCS; 2019-05-04)
PROC: 4A023N7 Measurement of Cardiac Sampling and Pressure, Left Heart, Percutaneous Approach (ICD-10-PCS; 2019-05-06)
PROC: B2151ZZ Fluoroscopy of Left Heart using Low Osmolar Contrast (ICD-10-PCS; 2019-05-06)
PROC: B2111ZZ Fluoroscopy of Multiple Coronary Arteries using Low Osmolar Contrast (ICD-10-PCS; 2019-05-06)
PROC: 5A1D70Z Performance of Urinary Filtration, Intermittent, Less than 6 Hours Per Day (ICD-10-PCS; 2019-05-06)
PROC: 5A1D70Z Performance of Urinary Filtration, Intermittent, Less than 6 Hours Per Day (ICD-10-PCS; 2019-05-08)
PROC: 5A1D70Z Performance of Urinary Filtration, Intermittent, Less than 6 Hours Per Day (ICD-10-PCS; 2019-05-09)
PROC: 5A1D70Z Performance of Urinary Filtration, Intermittent, Less than 6 Hours Per Day (ICD-10-PCS; 2019-05-11)
DX: T43.621A Poisoning by amphetamines, accidental (unintentional), initial encounter (principal); G92 Toxic encephalopathy; I21.4 Non-ST elevation (NSTEMI) myocardial infarction; N17.0 Acute kidney failure with tubular necrosis; I50.31 Acute diastolic (congestive) heart failure; I13.0 Hypertensive heart and chronic kidney disease with heart failure and stage 1 through stage 4 chronic kidney disease, or unspecified chronic kidney disease; M62.82 Rhabdomyolysis; N25.81 Secondary hyperparathyroidism of renal origin; E87.5 Hyperkalemia; F17.210 Nicotine dependence, cigarettes, uncomplicated; F15.10 Other stimulant abuse, uncomplicated; E83.51 Hypocalcemia; N18.9 Chronic kidney disease, unspecified; E83.39 Other disorders of phosphorus metabolism; E66.9 Obesity, unspecified; F32.9 Major depressive disorder, single episode, unspecified; F41.9 Anxiety disorder, unspecified; I25.10 Atherosclerotic heart disease of native coronary artery without angina pectoris; I27.20 Pulmonary hypertension, unspecified; D64.9 Anemia, unspecified; D72.829 Elevated white blood cell count, unspecified; K76.0 Fatty (change of) liver, not elsewhere classified; E79.0 Hyperuricemia without signs of inflammatory arthritis and tophaceous disease; Z85.42 Personal history of malignant neoplasm of other parts of uterus; Z98.49 Cataract extraction status, unspecified eye; Z85.43 Personal history of malignant neoplasm of ovary; Y92.89 Other specified places as the place of occurrence of the external cause
CPT/HCPCS: 36415; 70450; 71045; 72131; 76000; 76705; 76775; 76942; 78452; 80048; 80053; 80061; 80074; 80307; 80320; 81001; 81025; 82040; 82306; 82310; 82550; 82570; 82728; 82962; 83036; 83520; 83540; 83550; 83874; 83880; 83970; 84100; 84156; 84300; 84484; 84550; 84702; 85025; 85610; 85730; 86038; 86160; 86256; 86592; 86704; 86706; 86708; 86803; 86850; 86900; 86901; 87040; 87081; 87340; 90935; 93005; 93017; 93306; 94640; 96361; 96365; 96375; 97116; 97163; 97530; 99152; 99153; C9113; G0378; J0153; J0610; J0696; J0885; J1642; J1756; J1815; J2001; J2250; J2405; J3480; J7060; Q9967

== ENCOUNTER 2020-01-31 13:34 | Emergency (ER) | payer OTHER ==
[~2020-01-31] VITALS: Ht 160 cm; Wt 98.4 kg
[~2020-01-31 13:34] MED LIST: ALL300T PO; ERGO1CAP23 PO; FER325T PO; FURO40TA4 PO; MET25T PO
[2020-01-31 14:56] LABS: Basophils # (auto) 0.1 10 ^3/uL (0-0.2); Basophils % (auto) 1.3 % (0.0-2.0); Eosinophils # (auto) 0.3 10 ^3/uL (0-0.8); Eosinophils % (auto) 2.8 % (0.0-7.0); Hematocrit 44.6 % (36.0-46.0); Hemoglobin 15.1 g/dL (12.2-16.2); Lymphocytes # (auto) 4.2 10 ^3/uL (0.4-5.4); Lymphocytes % (auto) 39.2 % (10.0-50.0); Mean Corpuscular Hgb Conc. 33.9 g/dL (32.0-36.0); Mean Corpuscular Volume 88.5 fL (80.0-100.0); Monocytes # (auto) 0.7 10 ^3/uL (0-1.3); Monocytes % (auto) 6.8 % (0.0-12.0); Neutrophils # (auto) 5.3 10 ^3/uL (1.6-8.6); Neutrophils % (auto) 49.9 % (37.0-80.0); Nucleated Red Blood Cells % 0.2 %; Platelet Count (auto) 362 10^3/uL (140-450); Red Blood Cells 5.04 10^6/uL (4.0-5.20); Red Cell Distribution Width 13.6 % (11.8-14.3); White Blood Cell 10.6 10^3/uL (4.4-10.8)
[2020-01-31 15:10] LABS: Anion Gap 5 (5-15); BUN/Creatinine Ratio 12.9; Blood Urea Nitrogen 12 mg/dL (7-18); Calcium 9.3 mg/dL (8.5-10.1); Carbon Dioxide 27 mmol/L (21-32); Chloride 108 mmol/L (98-107); GFR African American 88 mL/min; GFR Non-African American 73 mL/min; Glucose 103 mg/dL (74-106); Sodium 140 mmol/L (136-145)
[2020-01-31 15:12] VITALS: BP 127/93
[2020-01-31 15:15] LABS: Alanine Aminotransferase 124 U/L (13-56); Alkaline Phosphatase 85 U/L (45-117); Aspartate Aminotransferase 67 U/L (15-37); Bilirubin, Total 0.4 mg/dL (0.2-1.0); Total Protein 7.9 g/dL (6.4-8.2)
== END 2020-01-31 21:09 | disposition left against medical advice (07) ==
LOC: ER 13:34
DX: R07.89 Other chest pain (principal); Z53.21 Procedure and treatment not carried out due to patient leaving prior to being seen by health care provider
CPT/HCPCS: 36415; 71046; 80053; 84484; 85025; 93005

== ENCOUNTER 2021-05-06 08:28 | Emergency (ER) | payer OTHER ==
[~2021-05-06] VITALS: Ht 160 cm; Wt 107.0 kg
[2021-05-06 09:09] VITALS: BP 134/83
== END 2021-05-06 10:11 | disposition home or self-care (01) ==
LOC: ER 08:28
DX: S60.221A Contusion of right hand, initial encounter (principal); J45.909 Unspecified asthma, uncomplicated; F17.210 Nicotine dependence, cigarettes, uncomplicated; Z79.899 Other long term (current) drug therapy; W22.8XXA Striking against or struck by other objects, initial encounter; Y93.89 Activity, other specified; Y92.89 Other specified places as the place of occurrence of the external cause; Y99.0 Civilian activity done for income or pay
CPT/HCPCS: 29125; 73120

== ENCOUNTER 2021-09-06 17:59 | Emergency (ER) | payer OTHER ==
[~2021-09-06] VITALS: Ht 160 cm; Wt 98.9 kg
[2021-09-06 18:30] VITALS: BP 119/72
[2021-09-06 20:01] LABS: Basophils # (auto) 0.1 10 ^3/uL (0-0.2); Basophils % (auto) 0.9 % (0.0-2.0); Eosinophils # (auto) 0.1 10 ^3/uL (0-0.8); Eosinophils % (auto) 1.7 % (0.0-7.0); Hematocrit 40.7 % (36.0-46.0); Hemoglobin 13.8 g/dL (12.2-16.2); Lymphocytes # (auto) 2.7 10 ^3/uL (0.4-5.4); Lymphocytes % (auto) 43.6 % (10.0-50.0); Mean Corpuscular Hemoglobin 28.9 pg (28.0-32.0); Mean Corpuscular Hgb Conc. 33.8 g/dL (32.0-36.0); Mean Corpuscular Volume 85.6 fL (80.0-100.0); Monocytes # (auto) 0.3 10 ^3/uL (0-1.3); Monocytes % (auto) 5.4 % (0.0-12.0); Neutrophils # (auto) 2.9 10 ^3/uL (1.6-8.6); Neutrophils % (auto) 48.4 % (37.0-80.0); Nucleated Red Blood Cells % 0.1 %; Red Blood Cells 4.76 10^6/uL (4.0-5.20); Red Cell Distribution Width 12.7 % (11.8-14.3); White Blood Cell 6.1 10^3/uL (4.4-10.8)
[2021-09-06 20:17] LABS: Albumin 3.1 g/dL (3.4-5.0); Calcium 8.7 mg/dL (8.5-10.1); Potassium 4.3 mmol/L (3.5-5.1)
[2021-09-06 20:26] LABS: BUN/Creatinine Ratio 14.1; Bilirubin, Total 0.3 mg/dL (0.2-1.0); Total Protein 7.2 g/dL (6.4-8.2)
[2021-09-06] MEDS ORDERED: SODIUM CHLORIDE 0.9% 1,000 ML IV ONE (21:15)
[2021-09-06] MEDS ORDERED: InsuLIN REG 1unit/0.01ml Soln (100units/ml) IV ONE (21:15)
[2021-09-06 22:50] LABS: Urine Bacteria FEW /hpf (None Seen); Urine Blood 3+ /uL (Negative); Urine Mucus FEW (None Seen); Urine Specific Gravity 1.039 (1.001-1.035); Urine WBC 1 /hpf (0 - 5)
== END 2021-09-08 05:02 | disposition left against medical advice (07) ==
LOC: ER 17:59
DX: E11.65 Type 2 diabetes mellitus with hyperglycemia (principal); J45.909 Unspecified asthma, uncomplicated; R10.12 Left upper quadrant pain; F17.210 Nicotine dependence, cigarettes, uncomplicated
CPT/HCPCS: 36415; 74176; 80053; 81001; 82150; 83690; 85025

== ENCOUNTER 2021-09-23 18:35 | Emergency (ER) | payer OTHER ==
[~2021-09-23] VITALS: Ht 160 cm; Wt 93.0 kg
[2021-09-23 20:25] LABS: Basophils # (auto) 0.1 10 ^3/uL (0-0.2); Basophils % (auto) 0.9 % (0.0-2.0); Eosinophils # (auto) 0.1 10 ^3/uL (0-0.8); Eosinophils % (auto) 1.7 % (0.0-7.0); Hematocrit 41.2 % (36.0-46.0); Hemoglobin 13.3 g/dL (12.2-16.2); Lymphocytes # (auto) 3.1 10 ^3/uL (0.4-5.4); Lymphocytes % (auto) 47.8 % (10.0-50.0); Mean Corpuscular Hemoglobin 27.9 pg (28.0-32.0); Mean Corpuscular Hgb Conc. 32.2 g/dL (32.0-36.0); Mean Corpuscular Volume 86.8 fL (80.0-100.0); Monocytes # (auto) 0.3 10 ^3/uL (0-1.3); Monocytes % (auto) 5.4 % (0.0-12.0); Neutrophils # (auto) 2.9 10 ^3/uL (1.6-8.6); Neutrophils % (auto) 44.2 % (37.0-80.0); Nucleated Red Blood Cells % 0.1 %; Red Blood Cells 4.75 10^6/uL (4.0-5.20); Red Cell Distribution Width 13.3 % (11.8-14.3); White Blood Cell 6.5 10^3/uL (4.4-10.8)
[2021-09-23 20:45] LABS: Albumin 3.5 g/dL (3.4-5.0); BUN/Creatinine Ratio 15.2; Calcium 9.2 mg/dL (8.5-10.1); Potassium 4.2 mmol/L (3.5-5.1)
[2021-09-23 20:48] LABS: Bilirubin, Total 0.2 mg/dL (0.2-1.0); Total Protein 6.8 g/dL (6.4-8.2)
[2021-09-23] MEDS ORDERED: SODIUM CHLORIDE 0.9% 1,000 ML IV ONE (23:00)
[2021-09-23 23:55] LABS: Urine Bacteria NONE SEEN /hpf (None Seen); Urine Blood Negative /uL (Negative); Urine Mucus FEW (None Seen); Urine Specific Gravity 1.027 (1.001-1.035); Urine WBC 2 /hpf (0 - 5)
[2021-09-24] MEDS ORDERED: ASPirin 81 mg TAB PO ONE (03:45)
[2021-09-24 07:40] VITALS: BP 92/50
== END 2021-09-24 08:17 | disposition short-term general hospital (02) ==
LOC: ER 18:35
DX: E10.65 Type 1 diabetes mellitus with hyperglycemia (principal); H54.7 Unspecified visual loss; R94.31 Abnormal electrocardiogram [ECG] [EKG]; Z20.822 Contact with and (suspected) exposure to COVID-19
CPT/HCPCS: 36415; 70450; 71045; 80053; 81001; 84484; 85025; 87426; 93005; 96360; 99285; J7030

== ENCOUNTER 2021-10-30 12:33 | Emergency (ER) | payer OTHER ==
[~2021-10-30] VITALS: Ht 160 cm; Wt 93.2 kg
[2021-10-30 12:56] VITALS: BP 111/82
[2021-10-30 13:33] LABS: Urine Bacteria NONE SEEN /hpf (None Seen); Urine Blood Negative /uL (Negative); Urine Mucus FEW (None Seen); Urine Specific Gravity 1.041 (1.001-1.035); Urine WBC 11 /hpf (0 - 5)
[2021-10-30] MEDS ORDERED: SODIUM CHLORIDE 0.9% 1,000 ML IV ONE (15:15)
[2021-10-30] MEDS ORDERED: METOCLOPRAMIDE HCL 5MG/ml INJ 2ml VIAL IV ONE (15:15)
[2021-10-30] MEDS ORDERED: cefTRIAXone 1GM/50ML D5W 50 ML IV ONE (15:15)
== END 2021-10-30 16:35 | disposition left against medical advice (07) ==
LOC: ER 12:33
DX: R10.11 Right upper quadrant pain (principal); Z53.21 Procedure and treatment not carried out due to patient leaving prior to being seen by health care provider
CPT/HCPCS: 81001

== ENCOUNTER 2022-10-11 18:39 | Emergency (ER) | payer MEDICAID, OTHER ==
[~2022-10-11] VITALS: Ht 160 cm; Wt 99.4 kg
[2022-10-11] MEDS ORDERED: ONDANSETRON ODT 4 MG TAB PO ONE (20:15)
[2022-10-11 20:29] LABS: Basophils # (auto) 0 10 ^3/uL (0-0.2); Basophils % (auto) 0.4 % (0.0-2.0); Eosinophils # (auto) 0.1 10 ^3/uL (0-0.8); Hematocrit 41.8 % (36.0-46.0); Hemoglobin 13.8 g/dL (12.2-16.2); Lymphocytes % (auto) 19.8 % (10.0-50.0); Mean Corpuscular Hemoglobin 27.4 pg (28.0-32.0); Mean Corpuscular Hgb Conc. 32.9 g/dL (32.0-36.0); Mean Corpuscular Volume 83.3 fL (80.0-100.0); Monocytes # (auto) 0.6 10 ^3/uL (0-1.3); Monocytes % (auto) 6.2 % (0.0-12.0); Neutrophils # (auto) 7.4 10 ^3/uL (1.6-8.6); Neutrophils % (auto) 72.6 % (37.0-80.0); Nucleated Red Blood Cells % 0.1 %; Red Blood Cells 5.02 10^6/uL (4.0-5.20); Red Cell Distribution Width 14.3 % (11.8-14.3); White Blood Cell 10.1 10^3/uL (4.4-10.8)
[2022-10-11 20:44] LABS: Albumin 3.6 g/dL (3.4-5.0); BUN/Creatinine Ratio 15.2 (10.0-20.0); Calcium 9.1 mg/dL (8.5-10.1); Potassium 3.9 mmol/L (3.5-5.1)
[2022-10-11 20:46] LABS: Bilirubin, Total 0.5 mg/dL (0.2-1.0); Total Protein 7.7 g/dL (6.4-8.2)
[2022-10-11] MEDS ORDERED: ZOFR4T PO (22:59)
[2022-10-12 00:11] VITALS: BP 127/76; PULSE 103; RESP 19; TEMP 98.2; O2SAT 95
== END 2022-10-12 00:12 | disposition home or self-care (01) ==
LOC: ER 18:41
DX: K57.90 Diverticulosis of intestine, part unspecified, without perforation or abscess without bleeding (principal); K76.0 Fatty (change of) liver, not elsewhere classified; R11.2 Nausea with vomiting, unspecified; J45.909 Unspecified asthma, uncomplicated; E11.9 Type 2 diabetes mellitus without complications; T50.905A Adverse effect of unspecified drugs, medicaments and biological substances, initial encounter; F17.210 Nicotine dependence, cigarettes, uncomplicated; K82.9 Disease of gallbladder, unspecified; Z88.6 Allergy status to analgesic agent; Z88.8 Allergy status to other drugs, medicaments and biological substances; Y92.89 Other specified places as the place of occurrence of the external cause
CPT/HCPCS: 36415; 74176; 80053; 85025; 99284; Q0162